=== PATIENT | male | born 1950 | race Caucasian/White ===

== ENCOUNTER 2021-03-06 10:33 | Emergency (ER) | payer MEDICARE ==
[~2021-03-06] VITALS: Ht 177.8 cm; Wt 98.4 kg
[2021-03-06 10:45] VITALS: BP 161/81
--- NOTE | 2021-03-06 10:45 | NUR ---
AMBULATED TO ER BED 11
--- NOTE | 2021-03-06 10:51 | NUR ---
71/M PRESENTS TO ED WITH C/O UPPER BACK PAIN. STATES HE HAS HAD A "PIMPLE" ON HIS BACK FOR AWHILE BUT STATES PAIN HAS BEEN WORSENING THE LAST 3 DAYS. MASS NOTED TO UPPER BACK, STATES SITE IS TENDER, PAIN WORSENS WITH TOUCH OR ATTEMPTING TO LAY DOWN, DENIES INJURY OR TRAUMA. REPORTS 9/10 THROBBING PAIN, DENIES CP, SOB, FEVER OR CHILLS.
[2021-03-06] MEDS ORDERED: LIDOCAINE MPF 1% 10 MG/ML VIAL INJ ONE (10:55)
[2021-03-06] MEDS ORDERED: CEPH-588 PO (11:36)
[2021-03-06] MEDS ORDERED: IBUP-2213 PO (11:36)
[2021-03-06 11:44] VITALS: BP 146/73
--- NOTE | 2021-03-06 11:44 | NUR ---
Patient discharged with v/s stable. Written and verbal after care instructions given ABSCESS and explained. Patient alert, oriented and verbalized understanding of instructions. Ambulatory with steady gait. All questions addressed prior to discharge. ID band removed. Patient advised to follow up with PMD. Rx of KEFLEX AND IBUROFEN given. Patient educated on indication of medication including possible reaction and side effects. Opportunity to ask questions provided and answered.
== END 2021-03-06 11:44 | disposition home or self-care (01) ==
LOC: MED 10:33
DX: L02.212 Cutaneous abscess of back [any part, except buttock and flank] (principal); E11.9 Type 2 diabetes mellitus without complications
CPT/HCPCS: 10060; 99283; J2001

== ENCOUNTER 2021-03-08 10:37 | Emergency (ER) | payer MEDICARE ==
[~2021-03-08] VITALS: Ht 177.8 cm; Wt 98.4 kg
[~2021-03-08 10:37] MED LIST: CEPH-588 PO; IBUP-2213 PO
[2021-03-08 10:39] VITALS: BP 126/73
--- NOTE | 2021-03-08 10:59 | NUR ---
71YO M FOR RECHECK OF ABSCESS ON RIGHT UPPER BACK. PT HAD ABSCESS DRAINAGE 2 DAYS AGO. DENIES FEVER, PAIN. ON DAY 2 OF ABX CEPHALEXIN, PATIENT STATES HE IS TAKING MEDICATION PRESCRIBED. A&OX4, VSS. PMH: DM MEDS: METFORMIN NKA
--- NOTE | 2021-03-08 11:25 | NUR ---
DR DELGADO AT BEDSIDE
[2021-03-08] MEDS ORDERED: MUPI2CRE22 TP (11:31)
[2021-03-08] MEDS ORDERED: SULF-59 PO (11:31)
[2021-03-08 11:39] VITALS: BP 126/73
--- NOTE | 2021-03-08 11:40 | NUR ---
Patient discharged with v/s stable. Written and verbal after care instructions given and explained. Patient alert, oriented and verbalized understanding of instructions. Ambulatory with steady gait. All questions addressed prior to discharge. ID band removed. Patient advised to follow up with PMD. Rx of MUPIROCIN, BACTRIM given. Patient educated on indication of medication including possible reaction and side effects. Opportunity to ask questions provided and answered.
== END 2021-03-08 11:39 | disposition home or self-care (01) ==
LOC: MED 10:37
DX: L02.212 Cutaneous abscess of back [any part, except buttock and flank] (principal); Z48.01 Encounter for change or removal of surgical wound dressing; E11.9 Type 2 diabetes mellitus without complications; Z87.891 Personal history of nicotine dependence; Z79.2 Long term (current) use of antibiotics; Z79.1 Long term (current) use of non-steroidal anti-inflammatories (NSAID)
CPT/HCPCS: 99283